=== PATIENT | male | born 1985 | race Caucasian/White ===

== ENCOUNTER 2017-05-20 14:46 | Observation (INO) | payer OTHER ==
[~2017-05-20] VITALS: Ht 177.8 cm; Wt 137.0 kg
[~2017-05-20 14:46] MED LIST: ALBU8.5H2 IH; CARV10CP PO; CMBV14.7IN IH; LISI10TA2 PO; TOPI100T PO
[2017-05-20] MEDS ORDERED: ASPIRIN 81 MG CHEW (CHILDREN'S ASA) PO ONE (15:00)
--- NOTE | 2017-05-20 15:33 | Diagnostic Imaging Report ---
EXAM: Chest 1 view, AP/PA only. INDICATION: Chest pain. COMPARISON: Chest radiograph from 04/29/2014. FINDINGS: Normal heart size and pulmonary vascularity. No focal pulmonary opacity, pleural effusion or pneumothorax. Osseous structures are unremarkable. No significant change. IMPRESSION: Negative chest. Dictated by: Dictated on workstation # [id number]
--- NOTE | 2017-05-20 15:43 | ED Chest Pain ---
General Chief Complaint: Chest Pain Stated Complaint: CP Allergies and Home Medications Allergies Coded Allergies: Penicillins (Verified Allergy, Severe, ANAPHYLAXIS, 04/28/14) Home Medications Albuterol 8.5 Gm Hfa.aer.ad, 1 PUFF IH Q4H PRN for SHORTNESS OF BREATH, ( Reported) 1 PUFFS Albuterol/Ipratropium 14.7 Gm Inh, 1 SPRAY IH BID, #1 (Reported) Carvedilol Phosphate 10 Mg Cpmp.24hr, 1 EACH PO DAILY, (Reported) Lisinopril 10 Mg Tablet, 10 MG PO DAILY, (Reported) Topiramate 100 Mg Tab, 100 MG PO DAILY, (Reported) Past Qpzicaf-Zirffq-Kigkml Hx Patient Social History Recent Foreign Travel: No Contact w/Someone Who Travel: No Respiratory Respiratory Disorders: Asthma Reproductive System Hx Reproductive Disorders: No Physical Exam Vital Signs Capillary Refill : Progress/Results/Core Measures Results/Orders My Orders Orders - SYD HDEZ DO Cbc With Automated Diff (05/20/17 14:50) Magnesium (05/20/17 14:50) Chest 1 View, Ap/Pa Only (05/20/17 14:50) Ekg Tracing (05/20/17 14:50) Cardiac Profile 1 (05/20/17 14:50) Comprehensive Metabolic Panel (05/20/17 14:50) Myoglobin Serum (05/20/17 14:50) Protime With Inr (05/20/17 14:50) Partial Thromboplastin Time (05/20/17 14:50) O2 (05/20/17 14:50) Monitor-Rhythm Ecg Trace Only (05/20/17 14:50) Aspirin Chewable Tablet (Baby Aspirin Ch (05/20/17 15:00) Saline Lock/Iv-Start (05/20/17 14:50) Rx-Nitroglycerin Sl Tabs (Rx-Nitrostat S (05/20/17 15:45) Diagnostic Imaging Comments CXR--NO ACUTE PROCESS, PER RADIOLOGIST REPORT @ 1542 Reviewed: Reviewed by Me Departure Departure-Patient Inst. Referrals: NO,LOCAL PHYSICIAN (PCP/Family) Primary Care Physician SYD HDEZ DO May 20, 2017 15:43
[2017-05-20] MEDS ORDERED: RX-NITROGLYCERIN 0.4 MG TAB BTL 25'S SL PRN (15:45)
[2017-05-20 16:05] LABS: BASOPHILS % (AUTO) 0 % (0-10); EOSINOPHILS # (AUTO) 0.2 10^3/uL (0.0-0.3); EOSINOPHILS % (AUTO) 3 % (0-10); LYMPHOCYTES # (AUTO) 2.3 X 10^3 (1.0-4.0); LYMPHOCYTES % (AUTO) 27 % (12-44); MEAN CORPUSCULAR HEMOGLOBIN 30 PG (25-34); MEAN CORPUSCULAR HGB CONC 33 G/DL (32-36); MEAN CORPUSCULAR VOLUME 90 FL (80-99); MEAN PLATELET VOLUME 9.6 FL (7.4-10.4); MONOCYTES # (AUTO) 0.5 X 10^3 (0.0-1.0); MONOCYTES % (AUTO) 6 % (0-12); NEUTROPHILS # (AUTO) 5.6 X 10^3 (1.8-7.8); NEUTROPHILS % (AUTO) 64 % (42-75); PLATELET COUNT 323 10^3/uL (130-400); RED BLOOD COUNT 4.62 10^6/uL (4.35-5.85); RED CELL DISTRIBUTION WIDTH 13.4 % (10.0-14.5); WHITE BLOOD COUNT 8.7 10^3/uL (4.3-11.0)
[2017-05-20 16:13] LABS: INR 0.9 (0.8-1.4); PROTHROMBIN TIME PATIENT 12.5 SEC (12.2-14.7)
[2017-05-20] MEDS ORDERED: NITROGLYCERIN 2% OINT 1 GM UNIT DOSE PACKET TOP ONE (16:15)
[2017-05-20 16:21] LABS: ALANINE AMINOTRANSFERASE 46 U/L (0-55); ALBUMIN 4.3 GM/DL (3.2-4.5); ANION GAP 12 MMOL/L (5-14); ASPARTATE AMINO TRANSFERASE 26 U/L (5-34); BILIRUBIN,TOTAL 0.4 MG/DL (0.1-1.0); BLOOD UREA NITROGEN 11 MG/DL (7-18); BUN/CREATININE RATIO 10; CALCIUM 9.7 MG/DL (8.5-10.1); CARBON DIOXIDE 24 MMOL/L (21-32); CHLORIDE 102 MMOL/L (98-107); CREATININE SERUM 1.06 MG/DL (0.60-1.30); GFR ESTIMATED > 60; GLUCOSE 98 MG/DL (70-105); MAGNESIUM 2.1 MG/DL (1.8-2.4); SODIUM 138 MMOL/L (135-145); TOTAL PROTEIN 7.8 GM/DL (6.4-8.2)
[2017-05-20 16:28] LABS: MYOGLOBIN SERUM 31.2 NG/ML (10.0-92.0)
[2017-05-20] MEDS ORDERED: NS 100 ML (IVPB) BAG IV ONE (17:15)
[2017-05-20] MEDS ORDERED: IOHEXOL 350 MG/ML 150 ML (OMNIPAQUE 350) VIAL IV ONE (17:15)
--- NOTE | 2017-05-20 17:35 | Diagnostic Imaging Report ---
INDICATION: Chest pain and shortness of breath. TECHNIQUE: CTA chest obtained with IV contrast bolus and axial slices and sagittal and coronal and MIP reconstructions. FINDINGS: The pulmonary parenchymal vessels are well opacified with no CT evidence of pulmonary emboli. There is no aortic dissection or aneurysm. There is no mediastinal or hilar adenopathy. There are no enlarged axillary nodes. There is no pleural or pericardial fluid. Lung parenchymal windows demonstrated some mild atelectatic change versus early infiltrate in the lingular region. Right lung is clear. Visualized portions of the upper abdomen demonstrate fatty infiltration of the liver but no other abnormal finding. IMPRESSION: No CT evidence of pulmonary emboli or aortic dissection. There is some mild atelectatic change versus early infiltrate in the lingular region of the left lung. There is fatty infiltration of the liver. Dictated by: Dictated on workstation # [id number]
[2017-05-20 19:00] VITALS: BP 132/98
[2017-05-20 20:00] VITALS: BP 135/74
[2017-05-20] MEDS ORDERED: KETOROLAC 30 MG/ML VIAL IV PRN (20:30)
[2017-05-20] MEDS: NITROGLYCERIN 2% OINT 1 GM UNIT DOSE PACKET TOP SCH (23:53)
[2017-05-21] VITALS: BP 105/61
[2017-05-21 04:00] VITALS: BP 93/47
[2017-05-21 05:39] LABS: BASOPHILS % (AUTO) 1 % (0-10); EOSINOPHILS # (AUTO) 0.3 10^3/uL (0.0-0.3); EOSINOPHILS % (AUTO) 3 % (0-10); LYMPHOCYTES # (AUTO) 1.9 X 10^3 (1.0-4.0); LYMPHOCYTES % (AUTO) 26 % (12-44); MEAN CORPUSCULAR HEMOGLOBIN 30 PG (25-34); MEAN CORPUSCULAR HGB CONC 33 G/DL (32-36); MEAN CORPUSCULAR VOLUME 90 FL (80-99); MEAN PLATELET VOLUME 9.5 FL (7.4-10.4); MONOCYTES # (AUTO) 0.5 X 10^3 (0.0-1.0); MONOCYTES % (AUTO) 7 % (0-12); NEUTROPHILS # (AUTO) 4.8 X 10^3 (1.8-7.8); NEUTROPHILS % (AUTO) 64 % (42-75); PLATELET COUNT 256 10^3/uL (130-400); RED BLOOD COUNT 4.41 10^6/uL (4.35-5.85); RED CELL DISTRIBUTION WIDTH 13.6 % (10.0-14.5); WHITE BLOOD COUNT 7.4 10^3/uL (4.3-11.0)
[2017-05-21 05:48] LABS: ALANINE AMINOTRANSFERASE 44 U/L (0-55); ALBUMIN 4.1 GM/DL (3.2-4.5); ANION GAP 10 MMOL/L (5-14); ASPARTATE AMINO TRANSFERASE 22 U/L (5-34); BILIRUBIN,TOTAL 0.7 MG/DL (0.1-1.0); BLOOD UREA NITROGEN 14 MG/DL (7-18); BUN/CREATININE RATIO 14; CALCIUM 9.3 MG/DL (8.5-10.1); CARBON DIOXIDE 24 MMOL/L (21-32); CHLORIDE 102 MMOL/L (98-107); CREATININE SERUM 1.01 MG/DL (0.60-1.30); GFR ESTIMATED > 60; GLUCOSE 101 MG/DL (70-105); POTASSIUM 4.1 MMOL/L (3.6-5.0); SODIUM 136 MMOL/L (135-145); TOTAL PROTEIN 7.5 GM/DL (6.4-8.2)
[2017-05-21] MEDS: NITROGLYCERIN 2% OINT 1 GM UNIT DOSE PACKET TOP SCH ×2 (06:00→15:10)
[2017-05-21] MEDS ORDERED: HOLD METFORMIN MC SCH (07:00)
[2017-05-21 08:00] VITALS: BP 105/53
--- NOTE | 2017-05-21 09:18 | Consultation-Cardiology ---
HPI-Cardiology Cardiology Consultation: Date of Consultation 05/21/17 Time Seen by Provider: 09:00 Date of Admission Attending Physician Deb Peguero MD Admitting Physician No,Local Physician Consulting Physician MARINA PARKER MD, MA, FACP, FACC, FSCAI, CCDS HPI: Chief Complaint: CC: Left upper chest pain HPI: 31 yo man with L upper parasternal pain, sharp, waxing and waning (but unresolved) for the last 24 hours, unassociated with N/V or shortness of breath or cough or fever or chills. Has not had chest discomfort before. No aggravating or relieving factors Review of Systems-Cardiology Review of Systems Constitutional: No chills, No fever, No malaise, No tiredness, No weight loss, weight gain (for the last several months) Eyes: No vision change Ears/Nose/Throat: No ear discharge, No nasal drainage, No recent hearing loss Respiratory: As described under HPI Cardiovascular: As described under HPI Gastrointestinal: No constipation, No diarrhea, No nausea, No vomiting Genitourinary: No dysuria, No hematuria, No urine frequency changes Musculoskeletal: No back pain Skin: No rash, No ulcerations Psychiatric/Neurological: No seizure, No focal weakness, No syncope Hematologic: No bleeding abnormalities AEN-Wugcji-Vfvwwo Hx Patient Social History Alcohol Use: Denies Use Recreational Drug Use: No Smoking Status: Never a Smoker Recent Foreign Travel: No Recent Infectious Disease Expo: No Physical Abuse Screen: No Sexual Abuse: No Past Medical History PMH As described under Assessment. Family Medical History Family Medical History: Fam h/o of CAD (uncle at 45) and valvular heart disease (grandfather had a leaky valve at age 34) Allergies and Home Medications Allergies Coded Allergies: Penicillins (Verified Allergy, Severe, ANAPHYLAXIS, 04/28/14) Home Medications Albuterol 8.5 Gm Hfa.aer.ad, 1 PUFF IH Q4H PRN for SHORTNESS OF BREATH, ( Reported) 1 PUFFS Albuterol/Ipratropium 14.7 Gm Inh, 1 SPRAY IH BID, #1 (Reported) Carvedilol Phosphate 10 Mg Cpmp.24hr, 1 EACH PO DAILY, (Reported) Lisinopril 10 Mg Tablet, 10 MG PO DAILY, (Reported) Topiramate 100 Mg Tab, 100 MG PO DAILY, (Reported) Physical Exam-Cardiology Physical Exam Vital Signs/I&O Vital Sign - Last 12Hours 05/21/17 05/21/17 05/21/17 05/21/17 00:00 00:00 01:00 04:00 Temp 98.9 99.0 Pulse 69 78 75 Resp 25 25 B/P (MAP) 105/61 93/47 Pulse Ox 98 98 98 O2 Delivery Room Air Room Air Room Air 05/21/17 05/21/17 05/21/17 05/21/17 04:00 07:00 08:00 08:00 Temp 98.7 Pulse 59 88 Resp 20 B/P (MAP) 105/53 Pulse Ox 98 98 97 O2 Delivery Room Air Room Air Room Air 05/21/17 08:45 Pulse Ox 99 O2 Delivery Room Air Capillary Refill : Less Than 3 Seconds Constitutional: AAO x 3, well-developed, well-nourished HEENT: EOMI, hearing is well preserved, xanthelasmas are seen Neck: carotid pulses are 2 + bilaterally, with good upstrokes Respiratory: No accessory muscle use, lungs clear to percussion, lungs clear to auscultation Cardiovascular: regular rate-rhythm, S1 and S2, systolic murmur (faint ANNE-MARIE at cardiac base) Gastrointestinal: No tender, No guarding, No rebound, audible bowel sounds Extremities: No clubbing, No cyanosis, No significant edema Neurologic/Psychiatric: grossly intact, power is 5/5 both on sides Skin: No rash on exposed areas, No ulcerations on exposed areas Data Review Labs Laboratory Tests 05/20/17 15:36: White Blood Count 8.7, Red Blood Count 4.62, Hemoglobin 13.7, Hematocrit 41, Mean Corpuscular Volume 90, Mean Corpuscular Hemoglobin 30, Mean Corpuscular Hemoglobin Concent 33, Red Cell Distribution Width 13.4, Platelet Count 323, Mean Platelet Volume 9.6, Neutrophils (%) (Auto) 64, Lymphocytes (%) (Auto) 27, Monocytes (%) (Auto) 6, Eosinophils (%) (Auto) 3, Basophils (%) (Auto) 0, Neutrophils # (Auto) 5.6, Lymphocytes # (Auto) 2.3, Monocytes # (Auto) 0.5, Eosinophils # (Auto) 0.2, Basophils # (Auto) 0.0, Prothrombin Time 12.5, INR Comment 0.9, Activated Partial Thromboplast Time 26, Sodium Level 138, Potassium Level 4.0, Chloride Level 102, Carbon Dioxide Level 24, Anion Gap 12, Blood Urea Nitrogen 11, Creatinine 1.06, Estimat Glomerular Filtration Rate > 60 , BUN/Creatinine Ratio 10, Glucose Level 98, Calcium Level 9.7, Magnesium Level 2.1, Total Bilirubin 0.4, Aspartate Amino Transf (AST/SGOT) 26, Alanine Aminotransferase (ALT/SGPT) 46, Alkaline Phosphatase 64, Myoglobin 31.2, Troponin I < 0.30, Total Protein 7.8, Albumin 4.3 05/20/17 20:19: Myoglobin 31.7, Troponin I < 0.30 05/21/17 05:23: White Blood Count 7.4, Red Blood Count 4.41, Hemoglobin 13.0L, Hematocrit 40, Mean Corpuscular Volume 90, Mean Corpuscular Hemoglobin 30, Mean Corpuscular Hemoglobin Concent 33, Red Cell Distribution Width 13.6, Platelet Count 256, Mean Platelet Volume 9.5, Neutrophils (%) (Auto) 64, Lymphocytes (%) (Auto) 26, Monocytes (%) (Auto) 7, Eosinophils (%) (Auto) 3, Basophils (%) (Auto) 1, Neutrophils # (Auto) 4.8, Lymphocytes # (Auto) 1.9, Monocytes # (Auto) 0.5, Eosinophils # (Auto) 0.3, Basophils # (Auto) 0.0, Sodium Level 136, Potassium Level 4.1, Chloride Level 102, Carbon Dioxide Level 24, Anion Gap 10, Blood Urea Nitrogen 14, Creatinine 1.01, Estimat Glomerular Filtration Rate > 60, BUN/ Creatinine Ratio 14, Glucose Level 101, Calcium Level 9.3, Total Bilirubin 0.7, Aspartate Amino Transf (AST/SGOT) 22, Alanine Aminotransferase (ALT/SGPT) 44, Alkaline Phosphatase 59, Total Protein 7.5, Albumin 4.1 Laboratory Tests 05/20/17 15:36 05/21/17 05:23 A/P-Cardiology Assessment/Admission Diagnosis Chest pain of undetermined etiology; no evidence of ACS No evidence of PE or ao dissection on chest CT angio of 05/20/17 Obesity Bronchial asthma, by history Hypertension, by history Hyperlipidemia, by history Hypothyroidism of undetermined etiology, chronic, treated with thyroid replacement therapy and followed by his pcp Discussion and Recomendations * Echo to eval for pericarditis/pericard eff * ETT MPI to eval for cor ischemia * Treat with NSAID for now (given symptoms of pleuritis/pericarditis) * I had a detailed discussion with him regarding our differential diagnoses and eval/treatment plan Clinical Quality Measures AMI/AHF: ASA po Prior to arrival: No DVT/VTE Risk/Contraindication: Risk Factor Score Per Nursin RFS Level Per Nursing on Admit: 1=Low/No VTE PPX MARINA PARKER MD FACP FACC CCDS May 21, 2017 09:18
[2017-05-21] MEDS ORDERED: LEVO100T7 PO (09:54)
--- NOTE | 2017-05-21 09:54 | Short Stay Summary-Hospitalist ---
HPI History of Present Illness: HPI/Chief Complaint CC: Chest pain HPI: This is a 31-year-old white male clinic patient of [facility] that presents to the ER with complaints of chest pain. Due to the risk factor of obesity and family history he was placed in the ICU for rule out cardiac event and Dr. Hernandez has been consulted and will receive an echocardiogram and stress test in order to risk stratify. He denies any current chest pain but did 30 minutes ago. Source: patient Exam Limitations: no limitations Date Seen 05/21/17 Time Seen by Provider: 10:30 Attending Physician Deb Peguero MD PCP No,Local Physician Referring Physician Date of Admission May 20, 2017 at 17:10 Home Medications & Allergies Home Medications Reviewed patient Home Medication Reconciliation Form Allergies Allergies Coded Allergies Penicillins (Verified Allergy, Severe, ANAPHYLAXIS, 04/28/14) Past Piibivp-Beepty-Ggtnwe Hx Patient Social History Marrital Status: single Employed/Student: employed (call center 3 yrs) Alcohol Use: Denies Use Recreational Drug Use: No Smoking Status: Never a Smoker Physical Abuse Screen: No Sexual Abuse: No Recent Foreign Travel: No Contact w/other who traveled: No Recent Hopitalizations: No Recent Infectious Disease Expo: No Seasonal Allergies Seasonal Allergies: No Surgeries Yes (ear) Tonsillectomy Respiratory Yes Asthma Cardiovascular Yes Hypertension Neurological Yes Headaches /Migraines Reproductive System Hx Reproductive Disorders: No Genitourinary No Gastrointestinal No Musculoskeletal No Endocrine History of Endocrine Disorders: Yes Endocrine Disorders: Diabetes, Non-Insulin dep Cancer No Psychosocial History of Psychiatric Problem: No Integumentary History of Skin or Integumenta: No Review of Systems Constitutional: see HPI, weakness EENTM: no symptoms reported Respiratory: no symptoms reported Cardiovascular: chest pain Gastrointestinal: no symptoms reported Genitourinary: no symptoms reported Musculoskeletal: no symptoms reported Skin: no symptoms reported Psychiatric/Neurological: No Symptoms Reported All Other Systems Reviewed Negative Unless Noted: Yes Physical Exam Physical Exam Vital Signs Vital Sign - Last 12Hours 05/20/17 14:48 Temp 97.5 Pulse 82 Resp 16 B/P (MAP) 138/70 Pulse Ox 98 O2 Delivery Room Air Capillary Refill : Less Than 3 Seconds General Appearance: No Apparent Distress, WD/WN, Chronically ill, Obese Eyes: Bilateral Eye Normal Inspection, Bilateral Eye PERRL HEENT: PERRL/EOMI, Normal ENT Inspection, Pharynx Normal Neck: Full Range of Motion, Normal Inspection, Non Tender, Supple, Carotid Bruit Respiratory: Chest Non Tender, Lungs Clear, Normal Breath Sounds, No Accessory Muscle Use, No Respiratory Distress Cardiovascular: Regular Rate, Rhythm, No Edema, No Gallop, No JVD, No Murmur, Normal Peripheral Pulses Gastrointestinal: Normal Bowel Sounds, No Organomegaly, No Pulsatile Mass, Non Tender, Soft Back: Normal Inspection, No CVA Tenderness, No Vertebral Tenderness Extremity: Normal Capillary Refill, Normal Inspection, Normal Range of Motion, Non Tender, No Calf Tenderness, No Pedal Edema Neurologic/Psychiatric: Alert, Oriented x3, No Motor/Sensory Deficits, Normal Mood/Affect Skin: Normal Color, Warm/Dry Lymphatic: No Adenopathy Results Results/Procedures Lab Laboratory Tests 05/20/17 15:36 05/21/17 05:23 Short Stay Diagnosis Discharge Diagnosis-Short Stay Admission Diagnosis Assessment: Chest pain of uncertain etiology Hypertension Obesity Suspect NINO Hyperlipidemia Diabetes mellitus diet controlled Final Discharge Diagnosis Assessment: Chest pain of uncertain etiology Hypertension Obesity Suspect NINO Hyperlipidemia Diabetes mellitus diet controlled Conclusion Plan Plan: I appreciate cardiology assessment and risk stratification Echocardiogram and stress test Disposition per cardiology Clinical Quality Measures AMI/AHF: ASA po Prior to arrival: No DVT/VTE Risk/Contraindication: Risk Factor Score Per Nursin RFS Level Per Nursing on Admit: 1=Low/No VTE PPX ERIKA AREVALO DO May 21, 2017 09:54
[2017-05-21] MEDS ORDERED: ACET-2267 PO (10:05)
[2017-05-21] MEDS ORDERED: CARV12.52 PO (10:05)
[2017-05-21] MEDS ORDERED: LISI-552 PO (10:05)
[2017-05-21] MEDS ORDERED: NAPR500T3 PO (10:05)
[2017-05-21] MEDS ORDERED: FLUT1DIS28 IH (10:05)
[2017-05-21] MEDS: IBUPROFEN 600 MG (MOTRIN) TAB PO SCH ×3 (12:21→17:36)
[2017-05-21] MEDS ORDERED: CATHETER FLUSH 10 ML SYR IV PRN (13:00)
[2017-05-21 16:00] VITALS: BP 116/56
--- NOTE | 2017-05-22 13:47 | STRESS TEST ---
DATE OF SERVICE: 05/21/2017 Resting and post exercise Technetium 99m Tetrofosmin SPECT CT imaging ORDERING PHYSICIAN: MARINA PARKER MD, MA, FACP, FACC PRIMARY CARE PHYSICIAN: Dr. Peguero, Dr. Alvarado. CLINICAL DIAGNOSIS: Chest pain. Baseline images were carried out after injection of 9.97 mCi Technetium 99m Tetrofosmin. This was followed by exercise on a treadmill. Jhonny protocol was employed. Heart rate and blood pressure responses to exercise were normal. There did not appear to be significant ST segment deviation with exercise, although there was considerable baseline artifact at peak exercise. The test was stopped on account of fatigue. He attained 88% of maximum predicted heart rate and 7.9 mets of workload. He exercised for a total of 6 minutes and 30 seconds in the Jhonny protocol. Review of images at rest and following stress indicate a patchy tracer uptake both at rest and following exercise. This is probably artifact from patient's body habitus. There does not appear to be any distinct evidence of myocardial ischemia or infarction. Gated images show well preserved global left ventricular systolic function without any distinct regional wall motion abnormality. Left ventricular ejection fraction is calculated to be 58%. Left ventricular end diastolic volume is 90 mL. TID is absent (0.92). DESCRIPTION: 1. Technically somewhat difficult study on account of patient's body habitus. 2. Poor exercise capacity for age. 3. No evidence of any significant exercise induced myocardial ischemia or evidence of myocardial infarction on this study. 4. Well preserved global left ventricular systolic function with a calculated ejection fraction of 58%. Job ID: [id number] DocumentID: [id number] Dictated Date: 05/21/2017 17:26:53 Drawer Hardware Worker Date: 05/21/2017 20:50:55 Dictated By: MARINA PARKER MD, MA, FACP, FACC,
== END 2017-05-21 18:21 | disposition home or self-care (01) ==
LOC: EDUNIT# 14:46 → ER 14:47 → ICU 17:10 → UNDOADMOB 17:10 → ICU 19:00 → UNDODISOB 05-21 18:45
PROVIDERS: ADMIT Family Medicine; ATTEND Family Medicine
DX: R07.9 Chest pain, unspecified (principal); I10 Essential (primary) hypertension; E11.9 Type 2 diabetes mellitus without complications; E78.5 Hyperlipidemia, unspecified; E03.9 Hypothyroidism, unspecified; K76.0 Fatty (change of) liver, not elsewhere classified; E66.9 Obesity, unspecified; Z79.899 Other long term (current) drug therapy
CPT/HCPCS: 36415; 71010; 71275; 78452; 80053; 83735; 83874; 84484; 85025; 85610; 85730; 93005; 93017; 93041; 93306